=== PATIENT | female | born 1975 | race Caucasian/White ===

== ENCOUNTER 2024-05-30 00:34 | Emergency (ER) | payer OTHER ==
[2024-05-30 00:40] VITALS: BP 127/73; PULSE 77; RESP 18; TEMP 97.7; BMI 32.8
== END 2024-05-30 03:05 | disposition home or self-care (01) ==
LOC: JER 00:34
DX: M72.2 Plantar fascial fibromatosis (principal)
CPT/HCPCS: 99283-25